=== PATIENT | female | born 1985 | race Caucasian/White ===

== ENCOUNTER 2016-07-28 18:46 | Outpatient (CLI) | payer OTHER ==
[~2016-07-28] VITALS: Ht 154.9 cm; Wt 72.1 kg
[~2016-07-28 18:46] MED LIST: PREN1TAB79 PO
[2016-07-28 19:08] VITALS: Ht 154.9 cm; Wt 72.1 kg
[2016-07-28 19:09] VITALS: BP 104/67; PULSE 92; RESP 18
[2016-07-28] MEDS ORDERED: DOCU-144 PO (19:11)
[2016-07-28] MEDS ORDERED: FERR325C PO (19:11)
--- NOTE | 2016-07-28 20:01 | RADRPT ---
PROCEDURE: US OB biophysical profile. CLINICAL INDICATION: decreased movements, GDM TECHNIQUE: Multiple sonographic images of the pelvis were obtained. The images were reviewed on a PACS workstation. COMPARISON: 03/26/16 FINDINGS: There is a single viable intrauterine gestation. Cardiac activity is present with 128 beats per min [place]. There is a vertex presentation. The placenta is fundal. There is no evidence of placental abruption. There is a normal amount of amniotic fluid with an PAULA = 14.2 cm. Biophysical profile: movement 2/2 tone 2/2. breathing 2/2 PAULA 2/2 Total 02/28 RPTAT: AA . IMPRESSION: Normal biophysical profile. . .Harinder Shaikh MD, MD Date Time Electronically viewed and signed by .Harinder Shaikh MD, MD on 07/28/2016 20:00 .S/
--- NOTE | 2016-07-28 20:15 | PN ---
Date/Time of Note Date/Time of Note DATE: 07/28/16 TIME: 20:11 OB Subjective Subjective Subjective 31 yo P0 @ 38wks 6days, sent for NST/BPP for decreased movement. Now feels baby moving, no VB, no LOF, no ctx h/o GDMA1 this OB Objective Objective Objective Abdomen- gravid, n/t SVE- deferred FHT- Cat I [place]- no ctx sono- BPP 02/28 Abdomen: WNL Membranes: Intact Accelerations: Accelerations Present Decelerations: No Decelerations Varibility: Moderate Contractions on Admission: None OB Assessment/Plan Other Assessment: 31 yo P0 @ [id number], for BPP/NST - now feels baby moving -nml BPP/reactive NST -d/c home - f/u w primary OB next week NANETTE CHIANG MD Jul 28, 2016 20:15
--- NOTE | 2016-07-28 23:18 | TRIAGE ---
OB Triage Datetime Report Generated by CPN: 07/28/2016 23:18 Datetime: 07/28/2016 20:07 Stage of : OB Triage Labor Evaluation Frequency: occasional Monitor Mode: External Duration (sec)2399: 50-100 Quality: Mild Resting Tone [place]: Relaxed Heart Rate FHR Baseline Rate: 130 Monitor Mode: External US Variability: Moderate 6-25 bpm Accelerations: 15X15 Decelerations: None Category: Category I Datetime: 07/28/2016 20:02 Stage of : OB Triage Comments: Maternal pulse captured Datetime: 07/28/2016 19:58 Stage of : OB Triage Comments: Maternal pulse captured, loss of contact with fhts. Datetime: 07/28/2016 19:50 Stage of : OB Triage Datetime: 07/28/2016 19:30 Labor Evaluation Frequency: 1 Monitor Mode: External Duration (sec)2399: 60 Quality: Mild Pattern: Normal: <= 5 Contractions in 10 Minutes Resting Tone [place]: Relaxed Contraction Comments: IRRITABILITY NOTED Heart Rate FHR Baseline Rate: 135 Monitor Mode: External US FHR Baseline Changes: No Baseline Change Variability: Moderate 6-25 bpm Accelerations: 15X15 Decelerations: None Category: Category I Datetime: 07/28/2016 19:01 Assessment Type: Triage Maternal Assessment Level of Consciousness: Fully Conscious DTR's/Clonus: DTRs 2+; No Clonus Headache: Denies Blurred Vision: No Respiratory Effort: Unlabored Breath Sounds, Left: Clear and Equal Breath Sounds, Right: Clear and Equal Nausea/Vomiting: Denies RUQ Epigastric Pain: Denies Lower Extremities Edema: None Degree: None Upper Extremities Edema: None Degree: None Facial Edema: None Fall Risk Assessment History of Falling: (0) No Secondary Diagnosis: (15) Yes (Annotations: A1C 6.2) Ambulatory Aid: (0) Bedrest/Nurse Assist IV Therapy: (0) No Gait: (0) Normal/Bedrest/Immobile Mental Status: (0) Oriented to Own Ability Fall Score: 15 Fall Risk Score Definition: No Risk: No action required Datetime: 07/28/2016 18:58 Time of Arrival: 07/28/2016 18:40 EGA: 38.4 Arrived By: Ambulatory Arrived From: Dr. Conde Chief Complaint: Sent from clinic for NST, BPP, Movement: Present Contractions: Denies/Absent Rupture of Membranes: Denies Vaginal Bleeding: None Vaginal Discharge: Denies Recent Sexual Intercouse: Denies Abdominal Trauma: Not Applicable Patient Complaints: Other Additional Patient Complaints: Pt states Dr Ballesteros wants her to be checked because she is predia betic. Time Provider Notified: 07/28/2016 18:42 Provider Notified: WILDER Initial Plan: VS, EFM, BPP Datetime: 07/28/2016 18:52 Stage of : OB Triage Monitor Mode: External Monitor Mode: External US Datetime: 07/22/2016 14:08 Bedside Blood Glucose: 72 Datetime: 07/22/2016 13:36 Vaginal Exam Dilatation (cms): 0.0 Effacement (%): 0 Station: -4 Exam By: vc Vaginal Bleeding: None Cervix, Consistency: Firm Cervix, Position: Posterior Datetime: 07/22/2016 13:31 Assessment Type: Triage EGA: 37.5 Time Provider Notified: 07/22/2016 13:47 Provider Notified: abusleme Maternal Assessment Level of Consciousness: Fully Conscious Maternal Assessment Level of Consciousness: Fully Conscious DTR's/Clonus: DTRs 2+; No Clonus Headache: Generalized Headache: Denies Blurred Vision: No Respiratory Effort: Unlabored; Regular Rhythm; Equal Expansion Breath Sounds, Left: Clear and Equal Breath Sounds, Right: Clear and Equal Nausea/Vomiting: Hx of Nausea/Vomiting Nausea/Vomiting: Denies RUQ Epigastric Pain: Denies RUQ Epigastric Pain: Denies Lower Extremities Edema: None Upper Extremities Edema: None Facial Edema: None Fall Risk Assessment History of Falling: (0) No Secondary Diagnosis: (0) No Ambulatory Aid: (0) Bedrest/Nurse Assist IV Therapy: (0) No Gait: (0) Normal/Bedrest/Immobile Mental Status: (0) Oriented to Own Ability Fall Score: 0 Fall Risk Score Definition: No Risk: No action required Pain Assessment Pain Scale: 7 Pain Presence: Intermittent Pain Type: Cramping; Pressure Pain Location: Abdomen Datetime: 07/22/2016 13:29 Time of Arrival: 07/22/2016 13:16 Arrived By: Wheelchair Arrived From: Emergency Dept Chief Complaint: dizziness last p.m. and abdominal pain. pt. states she has been seen by dr. adilene acevedo for lga Movement: Present Contractions: Irregular Rupture of Membranes: Denies Vaginal Bleeding: None Vaginal Discharge: Denies Recent Sexual Intercouse: Denies Abdominal Trauma: Not Applicable Patient Complaints: Dizziness Additional Patient Complaints: have laborist eval. Time Provider Notified: 07/22/2016 13:48 Provider Notified: wilder
== END 2016-07-28 20:26 | disposition home or self-care (01) ==
LOC: OBT 18:46 → L-D 18:46 → OBT 20:26
PROVIDERS: ATTEND Obstetrics & Gynecology
DX: O36.8130 Decreased fetal movements, third trimester, not applicable or unspecified (principal); O24.410 Gestational diabetes mellitus in pregnancy, diet controlled; Z3A.38 38 weeks gestation of pregnancy
CPT/HCPCS: 76818; Z7500; G0463

== ENCOUNTER 2016-08-04 18:04 | Outpatient (CLI) | payer OTHER ==
[~2016-08-04] VITALS: Ht 154.9 cm; Wt 69.7 kg
[~2016-08-04 18:04] MED LIST changes: +DOCU-144 PO; +FERR325C PO
[2016-08-04 18:23] VITALS: BP 104/67; PULSE 110; RESP 18; Ht 154.9 cm; Wt 69.7 kg
--- NOTE | 2016-08-04 19:06 | RADRPT ---
PROCEDURE: US OB biophysical profile. CLINICAL INDICATION: evaluation TECHNIQUE: Multiple sonographic images of the pelvis were obtained. The images were reviewed on a PACS workstation. COMPARISON: Obstetrical ultrasound from 07/28/2016 FINDINGS: There is a single viable intrauterine gestation. Cardiac activity is present with 150 beats per min [place]. There is a vertex presentation. The placenta is posterior and fundal. There is no evidence of placental abruption. There is a normal amount of amniotic fluid with an PAULA = 10.6 cm. Biophysical profile: movement 2/2 tone 2/2. breathing 2/2 PAULA 2/2 Total 02/28 RPTAT: AA . IMPRESSION: Normal biophysical profile. Physician Brad Date Time Electronically viewed and signed by Physician Brad on 08/04/2016 19:06 /
--- NOTE | 2016-08-04 19:10 | RADRPT ---
PROCEDURE: US OB. CLINICAL INDICATION: Gestational diabetes. TECHNIQUE: Multiple sonographic images of the pelvis were obtained. Transabdominal imaging only w as performed. The images were reviewed on a PACS workstation. COMPARISON: 07/28/2016. FINDINGS: Single live intrauterine is identified. Cardiac activity is present with 150 beats per mi [place]. There is a vertex presentation. Measurements: BPD = 39 weeks 4 days. HC = 38 weeks 6 days. AC = 39 weeks 1 day. FL = 38 weeks 0 days. Estimated gestational age of approximately 38 weeks 6 days. The estimated date of delivery is 3640 g which is at the 63rd percentile. The EFW = . Limited evaluation of anatomy is without gross abnormality. The placenta is fundal and grade II. There is no evidence for an abruption or placenta previa. IMPRESSION: Single live intrauterine gestation of approximately 38 weeks 6 days. RPTAT: HMVK .Oskar Mathis MD, Date Time Electronically viewed and signed by .Oskar Mathis MD, MD on 08/04/2016 19:10 .K/
--- NOTE | 2016-08-04 21:18 | TRIAGE ---
OB Triage Datetime Report Generated by CPN: 08/04/2016 21:18 Datetime: 08/04/2016 18:28 Bedside Blood Glucose: 129 Datetime: 08/04/2016 18:19 Assessment Type: Triage Maternal Assessment Level of Consciousness: Fully Conscious DTR's/Clonus: DTRs 2+; No Clonus Headache: Denies Blurred Vision: No Respiratory Effort: Unlabored Breath Sounds, Left: Clear and Equal Breath Sounds, Right: Clear and Equal Nausea/Vomiting: Denies RUQ Epigastric Pain: Denies Lower Extremities Edema: None Degree: None Upper Extremities Edema: None Degree: None Facial Edema: None Fall Risk Assessment History of Falling: (0) No Secondary Diagnosis: (15) Yes Ambulatory Aid: (0) Bedrest/Nurse Assist IV Therapy: (0) No Gait: (0) Normal/Bedrest/Immobile Mental Status: (0) Oriented to Own Ability Fall Score: 15 Fall Risk Score Definition: No Risk: No action required Datetime: 07/28/2016 20:26 Time of Arrival: 08/04/2016 18:01 EGA: 39.4 Arrived By: Ambulatory Arrived From: Office Chief Complaint: PT SENT IN FOR NST/BPP FOR GDM Movement: Present Contractions: Denies/Absent Rupture of Membranes: Denies Vaginal Bleeding: None Vaginal Discharge: Denies Recent Sexual Intercouse: Denies Abdominal Trauma: Not Applicable Patient Complaints: None Provider Notified: ABUSLEME Initial Plan: NST/BPP/EFW Datetime: 07/28/2016 19:01 Fall Score: 15 Fall Risk Score Definition: No Risk: No action required Datetime: 07/28/2016 18:58 EGA: 38.4 Datetime: 07/22/2016 13:31 EGA: 37.5 Fall Score: 0 Fall Risk Score Definition: No Risk: No action required
--- NOTE | 2016-08-04 21:32 | PN ---
Date/Time of Note Date/Time of Note DATE: 08/04/16 TIME: 21:17 OB Subjective Subjective Subjective 31 yo P0@ 39.4 wks, sent by her doctor for NST/BPP/EFW no complaints; good FM, no VB, no LOF OB Objective Objective Objective 104/67, 110, 18, 98.3, 97 Abdomen- gravid, n/t SVE- closed per patient's private md FHT- Cat I [place]- no ctx Abdomen: WNL Extremities: Normal Effacement: 0% Heart Rate: 130's Accelerations: Accelerations Present Varibility: Moderate Contractions on Admission: None OB Assessment/Plan Other Assessment: reassuring status not in labor EFW- 3640gm, BPP 8/8, PAULA 10.6 GDMA1 scheduled for IOL tomorrow at 8pm NANETTE CHIANG MD Aug 04, 2016 21:28
== END 2016-08-04 21:10 | disposition home or self-care (01) ==
LOC: OBT 18:04 → L-D 18:06 → OBT 21:10
PROVIDERS: ATTEND Obstetrics & Gynecology
DX: O24.410 Gestational diabetes mellitus in pregnancy, diet controlled (principal); Z3A.39 39 weeks gestation of pregnancy
CPT/HCPCS: 76815; 76818; 82962; Z7500; G0463

== ENCOUNTER 2016-08-05 21:07 | Inpatient (IN) | payer OTHER ==
[~2016-08-05] VITALS: Ht 154.9 cm; Wt 69.1 kg
[2016-08-05 21:33] VITALS: BP 121/77; PULSE 97; RESP 18; Ht 154.9 cm; Wt 69.1 kg
[2016-08-05] MEDS ORDERED: OXYTOCIN 30 UNITS/LR 500 ML IV PRN (22:00)
[2016-08-05] MEDS ORDERED: CARBOPROST 250 MCG INJ IM PRN (22:00)
[2016-08-05] MEDS ORDERED: LIDOCAINE 1% (MPF) 30 ML INJ INJ PRN (22:00)
[2016-08-05] MEDS ORDERED: MISOPROSTOL 200 MCG TAB PR PRN (22:00)
[2016-08-05] MEDS ORDERED: METHYLERGONOVINE 0.2 MG INJ IM PRN (22:00)
[2016-08-05] MEDS ORDERED: IBUPROFEN 600 MG TAB PO PRN (22:00)
[2016-08-05] MEDS ORDERED: LACTATED RINGER'S 1,000 ML IV PRN (22:00)
[2016-08-05] MEDS ORDERED: BUTORPHANOL 2 MG INJ IV PRN (22:00)
[2016-08-05] MEDS ORDERED: DINOPROSTONE 10 MG VAG SUPP VAG ONE (22:00)
[2016-08-05] MEDS ORDERED: OXYTOCIN 30 UNITS/LR 500 ML IV SCH ×3 (22:00)
[2016-08-05] MEDS: LACTATED RINGER'S 1,000 ML IV SCH (22:08)
[2016-08-05 22:37] LABS: INR 0.96; PROTIME 12.8 Sec (12.2-14.2)
[2016-08-05 22:38] LABS: PARTIAL THROMBOPLASTIN TIME 29.7 Sec (25.0-35.0)
[2016-08-05 22:44] LABS: BASOPHIL # 0.1 10^3/ul (0.0-0.1); BASOPHILS % 0.8 % (0.0-2.0); EOSINOPHILS # 0.3 10^3/ul (0.0-0.5); EOSINOPHILS % 3.6 % (0.0-7.0); HEMATOCRIT 26.2 % (37.0-47.0); HEMOGLOBIN 8.5 g/dl (12.0-16.0); LYMPHOCYTES # 1.8 10^3/ul (0.8-2.9); LYMPHOCYTES % 21.1 % (15.0-51.0); MEAN CORPUSCULAR HEMOGLOBIN 26.6 pg (29.0-33.0); MEAN CORPUSCULAR HGB CONC 32.4 g/dl (32.0-37.0); MEAN PLATELET VOLUME 9.5 fl (7.4-10.4); MONOCYTE # 0.4 10^3/ul (0.3-0.9); MONOCYTES % 4.7 % (0.0-11.0); NEUTROPHIL # 5.9 10^3/ul (1.6-7.5); NEUTROPHILS % 69.8 % (39.0-77.0); PLATELET COUNT 264 10^3/UL (140-440); RED BLOOD COUNT 3.19 10^6/ul (4.20-5.40); RED CELL DISTRIBUTION WIDTH 19.7 % (11.5-14.5); UNCORRECTED WBC 8.4 10^3/ul (4.8-10.8); WHITE BLOOD COUNT 8.4 10^3/ul (4.8-10.8)
[2016-08-05 22:46] LABS: CONDITION 1; LH ANALYZER COMMENTS 1
[2016-08-06] MEDS: LACTATED RINGER'S 1,000 ML IV SCH ×3 (05:07→22:00)
[2016-08-06] MEDS: DEXTROSE 5%-LR 1,000 ML IV SCH ×2 (09:19→17:19)
[2016-08-06] MEDS ORDERED: LACTATED RINGER'S 1,000 ML IV SCH (09:19)
[2016-08-06] MEDS ORDERED: DINOPROSTONE 10 MG VAG SUPP VAG ONE ×2 (23:30)
[2016-08-07] MEDS: DEXTROSE 5%-LR 1,000 ML IV SCH (01:19)
[2016-08-07] MEDS: LACTATED RINGER'S 1,000 ML IV SCH ×3 (05:33→21:27)
[2016-08-07] MEDS ORDERED: CEFAZOLIN 2 GM/50 ML (PMX) 50 ML IVPB ONE (11:00)
[2016-08-07] MEDS ORDERED: NA PHOSPHATE/BIPHOS 133 ML ENEMA PR PRN (13:30)
[2016-08-07] MEDS ORDERED: LANOLIN 7 GM TUBE TOP PRN (13:30)
[2016-08-07] MEDS ORDERED: METHYLERGONOVINE 0.2 MG TAB PO PRN (13:30)
[2016-08-07] MEDS: CEFAZOLIN 2 GM/50 ML (PMX) 50 ML IV SCH (13:30)
[2016-08-07] MEDS ORDERED: METHYLERGONOVINE 0.2 MG INJ IM PRN (13:30)
[2016-08-07] MEDS ORDERED: MISOPROSTOL 200 MCG TAB PR PRN (13:30)
[2016-08-07] MEDS ORDERED: CARBOPROST 250 MCG INJ IM PRN (13:30)
[2016-08-07] MEDS ORDERED: OXYTOCIN 30 UNITS/LR 500 ML IV PRN (13:30)
[2016-08-07] MEDS ORDERED: EPHEDrine SULFATE 50 MG/5 ML SYG ONE (13:45)
[2016-08-07] MEDS ORDERED: OXYTOCIN 30 UNITS/LR 500 ML IV ONE (13:45)
[2016-08-07] MEDS ORDERED: OXYTOCIN 10 UNIT INJ ONE (13:46)
[2016-08-07] MEDS ORDERED: ONDANSETRON 4 MG INJ ONE (13:46)
[2016-08-07] MEDS ORDERED: METOCLOPRAMIDE 10 MG INJ ONE (13:46)
[2016-08-07] MEDS ORDERED: morphine SULFATE/PF (10 MG/10 ML) INJ ONE (13:46)
--- NOTE | 2016-08-07 14:03 | HP ---
Date/Time of Note Date/Time of Note DATE: 08/07/16 TIME: 13:49 OB - History Hx of Present Estimated Due Date: Aug 09, 2016 : 3 Para: 0 Therapeutic : 2 Care: Limited Care Obstetrical Complications: Gestational Diabetes Medical Complications: None Past Family/Social History * Past Medical, Surgical, Family and Obstetric Histories reviewed from chart. GBS Status: Negative OB Admission Exam Vital Signs Vital Signs Vital Signs Date Time Temp Pulse Resp B/P Pulse Ox O2 Delivery O2 Flow Rate FiO2 08/05/16 21:33 98.3 97 18 121/77 98 Room Air Physical Exam HEENT: WNL Heart: Rhythm Normal Lungs: Clear, Equal Abdomen: WNL Extremities: Normal Reflexes: Normal Cervical Dilatation: None Effacement: 0% Station: [place] Membranes: Intact Heart Rate: 130's Accelerations: Accelerations Present Varibility: Marked Contractions on Admission: None Last 72 hourBlood Glucose Bedside Glucose - 72 Hours Test 08/06/16 09:29 08/06/16 13:38 08/06/16 19:28 08/07/16 00:17 Bedside Glucose 77mg/dL (70-220) 95mg/dL (70-220) 132mg/dL (70-220) 126mg/dL (70-220) Test 08/07/16 04:01 08/07/16 09:18 08/07/16 13:11 Bedside Glucose 88mg/dL (70-220) 88mg/dL (70-220) 72mg/dL (70-220) Last 72 hours Lab Results CBC & BMP 08/05/16 21:50 OB Assessment/Plan Reason for admission: induction of labor Other Assessment: NO PROGRESS OF LABOR NOR DESCENT OF THE PRESENTATION Plan: Section AYDE HDZ MD Aug 07, 2016 14:00
[2016-08-07] MEDS ORDERED: morphine 2 MG INJ IV PRN ×2 (15:30)
[2016-08-07] MEDS ORDERED: HYDROmorphONE 1 MG/ML SYG IV PRN (15:30)
[2016-08-07] MEDS ORDERED: DIPHENHYDRAMINE 50 MG INJ IV PRN (15:30)
[2016-08-07] MEDS ORDERED: ONDANSETRON 4 MG INJ IV PRN (15:30)
[2016-08-07] MEDS ORDERED: NALOXONE (0.4 MG/ML) INJ IV PRN (15:30)
[2016-08-07] MEDS ORDERED: morphine SULFATE/PF (10 MG/10 ML) INJ SPINAL ONE (15:30)
[2016-08-07] MEDS ORDERED: EPHEDrine SULFATE 50 MG/5 ML SYG IV PRN (15:30)
--- NOTE | 2016-08-07 15:38 | OPPN ---
Date/Time of Note Date/Time of Note DATE: 08/07/16 TIME: 15:31 Operative/Procedure Note Pre-Operative Diagnosis TERM GDM DIET CONTROL ANEMIA LARGE FETUS Post-Operative Diagnosis SAME Procedure PRIMARY LOW SEGMENT TRANSVERSE C/S Surgeon: AYDE HDZ MD Shell Press Operator: NOLVIA BURTON M.D. Anesthesiologist: CA WADE MD Implants/Grafts: Not applicable Estimated blood loss: other Specimens PLACENTA Complications: None Anesthesia type: spinal AYDE HDZ MD Aug 07, 2016 15:38
--- NOTE | 2016-08-07 15:44 | DELSUM ---
Delivery Summary A-C Datetime Report Generated by CPN: 08/07/2016 15:43 DELIVERY PERSONNEL Front End Assistant: Ghukasyan, Jordyn MATERNAL INFORMATION Delivery Anesthesia: Spinal Medications in Delivery: 30 UNITS OF PIT IN 500 CC LR Estimated Blood Loss (ml): 700 Placenta Cultured: No Maternal Complications: Other Other Maternal Complications: Gestational diabetes LABOR SUMMARY EDC: 08/07/2016 00:00 No. Babies in Womb: 1 Attempted: No Labor Anesthesia: None LABOR INFORMATION Reason for Induction: Maternal Diabetes Cervical Ripening Agents: Cervidil (Annotations: #2 placed by MAYCO SAUERBUYER GRAIN) Cervical Ripening Agents: CERVIDIL REMOVED NOW Cervical Ripening Agents: Cervidil Oxytocin: N/A Group B Beta Strep: Negative Antibiotics # of Doses: 1 Antibiotics Time of Last Dose: 1334 Steroids Given: None Reason Steroids Not Administered: Not Applicable MEMBRANES Membranes Rupture Method: Artificial Rupture of Membranes: 08/07/2016 14:25 Length of Rupture (hr): 0.02 Amniotic Fluid Color: Clear Amniotic Fluid Amount: Small Amniotic Fluid Odor: Normal STAGES OF LABOR Stage 3 hr: 0 Stage 3 min: 1 CSECTION DELIVERY Primary Indication: Failed Induction Secondary Indication: Other Other Secondary Indication: ELECTIVE CSection Urgency: Elective CSection Incidence: Primary Labor: No Labor Elective: Elective CSection Incision: Lower Uterine Transverse BABY A INFORMATION Delivery Date/Time: 08/07/2016 14:26 Method of Delivery: Born in Route : No : N/A Forceps: N/A Vacuum Extraction: Successful Shoulder Dystocia : N/A ASSISTED DELIVERY BABY A Indication for Assisted Delivery: SEE MD"S NOTES SHOULDER DYSTOCIA BABY A Delivery Date/Time: 08/07/2016 14:26 PRESENTATION/POSITION BABY A Presentation: Cephalic Cephalic Presentation: Vertex Vertex Position: Left Occipital Anterior Breech Presentation: N/A PLACENTA INFORMATION BABY A Placenta Delivery Time : 08/07/2016 14:27 Placenta Method of Delivery: Manual Removal Placenta Status: Delivered SCORES BABY A Heart Rate 1 min: >100 bpm Resp Effort 1 min: Good Cry Reflex Irritability 1 min: Cough/Sneeze/Pulls Away Muscle Tone 1 min: Active Motion Color 1 min: Body Nunez, Extremit Blue Resuscitation Effort 1 min: Tactile Stimulation SCORE 1 MIN: 9 Heart Rate 5 min: >100 bpm Resp Effort 5 min: Good Cry Reflex Irritability 5 min: Cough/Sneeze/Pulls Away Muscle Tone 5 min: Active Motion Color 5 min: Body Nunez, Extremit Blue Resuscitation Effort 5 min: Tactile Stimulation SCORE 5 MIN: 9 INFANT INFORMATION BABY A Gestational Age at Delivery: 40.0 Gestational Status: Full Term- 39- 40.6 Weeks Infant Outcome : Liveborn Condition : Stable Infant Sex: Male IDENTIFICATION/MEDS BABY A ID Band Number: [id number] ID Band Location: Right Leg; Left Arm Sensor Applied: Yes Sensor Number: [id number] Sensor Location : Cord Clamp Vitamin K Given : Not Given Erythromycin Given: Not Given WEIGHT/LENGTH BABY A Birthweight (gm): 3750 Infant Weight (lb): 8 Weight (oz): 4 Length (in): 21.00 Infant Length (cm): 53.34 CORD INFORMATION BABY A Nuchal Cord : Around Neck x1, Loose Cord Blood Taken: Yes Infant Suction: Mouth; Nose ASSESSMENT BABY A Infant Complications: None Physical Findings at Delivery: Within Normal Limits Infant Respirations: Appears Normal Coffee Shop Manager/ALS Called : No Infant Care By: ULYSSES WALKER RN Transferred To: Remains with Mother
[2016-08-07] MEDS: OXYTOCIN 30 UNITS/LR 500 ML IV SCH ×2 (16:00→19:47)
--- NOTE | 2016-08-07 16:23 | PREOPHP ---
DATE OF ADMISSION: 08/05/2016 HISTORY OF PRESENT ILLNESS: This is a 31-year-old female 3, para 0, 2 with an EDC of 08/09/2016. This patient was admitted for induction on 08/05/2016 due to term , and ind uction of labor for gestational diabetes, late care, and estimation of weight of 710 possible with no engagement of the head. The patient was given the option of going straight up to a due to her height that is only 5'1', and the baby was measuring 710 with not engagement, and she had requested an induction to see if the baby would come down. The induction has been done f or over 24 hours. The patient has mild contractions. The baby has been all the way up in the pelvis without getting engaged. With the possibility of CPD, the patient has been advised for a primary c esarean section for possible CPD, term , gestational diabetes controlled with diet. PAST MEDICAL HISTORY: Unremarkable. She has been healthy. She had 2 abortions. ALLERGIES: She is not allergic to any medications. MEDICATIONS: No. SURGICAL HISTORY: None. FAMILY HISTORY: No major medical antecedents. PHYSICAL EXAMINATION: VITAL SIGNS: She is 5'1". Blood pressure is 110/80, respirations 16, pulse is 80, temperature 98.6 . HEAD AND NECK: Normal. CHEST: Clear. HEART: Normal sinus rhythm. LUNGS: Clear. BREASTS: Soft, nontender. No masses. ABDOMEN: Soft. Uterus at term, with normal heart tones. Patient barely cindy. VAGINAL: With a closed, long cervix, with a posterior long cervix, -3 station, membranes intact. EXTREMITIES: Were normal, with normal pulses, normal reflexes, and no edema. DIAGNOSES: 1. Term . 2. Gestational diabetes, diet control. 3. Failed induction. 4. Possible disproportion. PLAN: She is undergoing a primary section. She has been advised of the possible risks and possible complications of the procedure with her alternatives and options. Written information was provided. She had no more questions and agreed to go ahead with the procedure with full understand ing and no more questions. Dictated By: AYDE SEAMAN/ROYCE Conf#: [id number] DID#: [id number]
[2016-08-07] MEDS: KETOROLAC 30 MG INJ IV PRN (17:42)
--- NOTE | 2016-08-07 19:33 | OPR ---
DATE OF OPERATION: 08/07/2016 OPERATION PERFORMED: Primary low segment transverse section. PREOPERATIVE DIAGNOSES: 1. Term . 2. Gestational diabetes mellitus, diet controlled. 3. No progress of labor, failed induction SURGEON: Ayde Ballesteros MD STRAIGHTENING PRESS OPERATOR HELPER: Car Nichole MD ANESTHESIOLOGIST: Dr. Patiño. PROCEDURE: The patient was given ____ spinal anesthesia, placed in the supine position. The abdome n was prepped and draped and a Cardona catheter was placed in the bladder. A transverse incision was made of about 10 cm in length suprapubically over the midline, 2 cm up the pubic bone. The abdomen was opened in layers without difficulties. Abdominal cavity was reached. The Amol retractor was placed in and the amniotic fluid was clear. The baby's cord was around the neck loose, we passed th rough and the baby was delivered with the help of a vacuum. The cord was clamped and cut. The baby was large, 8.4 pound baby boy, 9. The cord was clamped and cut. The baby was handed over to the county treasurer team. The uterus was cleaned out and closed in layers using #1 Monocryl continuo us suture imbedding the first line of suture and hemostasis was good. The tubes and ovaries were no rmal. The piece of Interceed was placed in the area and the abdominal cavity was closed with a 2-0 Vicryl suture for peritoneum, #0 PDS looped suture for the fascia, #2-0 Vicryl for the subcutaneous tissue, and 3-0 Monocryl subcuticular to the skin. Steri-Strips and Dermabond was used. The patien t tolerated the procedure well and left the OR awake and stable. Sponge counts and instrument count s were correct. Intravenous antibiotics were given for prophylaxis. Blood loss was approximately 7 00 mL. The urine was clear at the end of the procedure. The patient left the OR awake and stable. Dictated By: AYDE SEAMAN/NTS Conf#: [id number] DID#: [id number]
[2016-08-07] MEDS: HYDROmorphONE 1 MG/ML SYG IV PRN ×2 (19:55→22:22)
[2016-08-07] MEDS: SENNA/DOCUSATE NA (8.6MG/50MG) TAB PO SCH (21:00)
[2016-08-07 22:40] VITALS: BP 118/71; PULSE 87; RESP 16
[2016-08-08] MEDS: CEFAZOLIN 2 GM/50 ML (PMX) 50 ML IV SCH ×2 (00:23→08:10)
[2016-08-08] MEDS: LACTATED RINGER'S 1,000 ML IV SCH ×4 (00:24→21:27)
[2016-08-08 00:30] VITALS: BP 102/58; PULSE 105; RESP 16
[2016-08-08] MEDS: KETOROLAC 30 MG INJ IV PRN ×2 (03:17→09:39)
[2016-08-08 04:15] VITALS: BP 103/64; PULSE 99; RESP 16
[2016-08-08 07:49] LABS: BASOPHIL # 0.1 10^3/ul (0.0-0.1); BASOPHILS % 0.5 % (0.0-2.0); EOSINOPHILS # 0.1 10^3/ul (0.0-0.5); EOSINOPHILS % 0.9 % (0.0-7.0); HEMATOCRIT 22.8 % (37.0-47.0); HEMOGLOBIN 7.4 g/dl (12.0-16.0); LYMPHOCYTES # 1.7 10^3/ul (0.8-2.9); LYMPHOCYTES % 16.2 % (15.0-51.0); MEAN CORPUSCULAR HEMOGLOBIN 26.6 pg (29.0-33.0); MEAN CORPUSCULAR HGB CONC 32.4 g/dl (32.0-37.0); MEAN CORPUSCULAR VOLUME 82.1 fl (82.0-101.0); MEAN PLATELET VOLUME 8.7 fl (7.4-10.4); MONOCYTE # 0.5 10^3/ul (0.3-0.9); MONOCYTES % 4.3 % (0.0-11.0); NEUTROPHIL # 8.3 10^3/ul (1.6-7.5); NEUTROPHILS % 78.1 % (39.0-77.0); PLATELET COUNT 230 10^3/UL (140-440); RED BLOOD COUNT 2.77 10^6/ul (4.20-5.40); RED CELL DISTRIBUTION WIDTH 20.8 % (11.5-14.5); UNCORRECTED WBC 10.7 10^3/ul (4.8-10.8); WHITE BLOOD COUNT 10.7 10^3/ul (4.8-10.8)
[2016-08-08 08:10] VITALS: BP 104/62; PULSE 87; RESP 16
[2016-08-08] MEDS: SENNA/DOCUSATE NA (8.6MG/50MG) TAB PO SCH ×2 (08:10→20:59)
[2016-08-08 08:18] LABS: CONDITION 1; LH ANALYZER COMMENTS 1
--- NOTE | 2016-08-08 10:33 | PN ---
Date/Time of Note Date/Time of Note DATE: 08/08/16 TIME: 10:27 Assessment/Plan Lines/Catheters IV Catheter Type (from Nrs): Peripheral IV Assessment/Plan Assessment/Plan we will wait on blood transfusion unless she has symptoms,or HB is dropping or vitals are unstable. we will give IV iron Subjective 24 Hr Interval Summary day 1 post c/s doing well, afebrile, stable, happy. very anemic but patient is chronic anemic & has no symptoms of chest pain,SOB fatigue or weakness. normal vaginal bleeding. Constitutional: BM, ambulates, flatus, improved, no complaints, urine output Feeding: advancing diet Pain Control: well controlled Detailed Summary Eyes: no complaints ENT: no complaints Respiratory: no complaints Cardiovascular: no complaints Gastrointestinal: no complaints Genitourinary: no complaints Musculoskeletal: no complaints Skin: no complaints Neurologic: no complaints Endocrine: no complaints Lymphatic: no complaints Psychological: nl mood/affect, no complaints Immunologic: no complaints Exam/Review of Systems Vital Signs Vitals Vital Signs Date Time Temp Pulse Resp B/P Pulse Ox O2 Delivery O2 Flow Rate FiO2 08/08/16 08:10 98.2 87 16 104/62 Room Air 08/05/16 21:33 98 Intake and Output 08/07/16 08/07/16 08/08/16 15:00 23:00 07:00 Intake Total 800 ml 500 ml 375 ml Output Total 700 ml 700 ml 750 ml Balance 100 ml -200 ml -375 ml Exam Constitutional: alert, oriented, well developed Psych: nl mood/affect, no complaints Head: atraumatic, normocephalic Eyes: EOMI, nl conjunctiva, nl lids, nl sclera ENMT: mucosa pink and moist, nl external ears & nose, nl lips & teeth, nl nasal mucosa & septum Neck: non-tender, supple Respiratory: clear to auscultation, normal air movement Cardiovascular: nl pulses, regular rate and rhythm Gastrointestinal: nl liver, spleen, non-tender, soft Musculoskeletal: nl extremities to inspection, nl gait and stance Extremities: normal pulses Neurological: MOTOR VEHICLE REPRESENTATIVE II-XII intact, nl mental status, nl speech, nl strength Skin: nl turgor, rash or lesions Lymph: nl lymph nodes Results Result Diagram: 08/08/16 0630 AYDE HDZ MD Aug 08, 2016 10:33
[2016-08-08] MEDS: SOD FERRIC GLUC COMPLX 125 MG in SOD CHLORIDE 0.9% 100 ML IVPB SCH (10:36)
[2016-08-08] MEDS ORDERED: BISACODYL (EC) 5 MG TAB PO ONE (11:00)
[2016-08-08 12:00] VITALS: BP 104/66; PULSE 91; RESP 16
[2016-08-08] MEDS ORDERED: CEFAZOLIN 2 GM/50 ML (PMX) 50 ML IVPB SCH (14:00)
[2016-08-08] MEDS: IBUPROFEN 800 MG TAB PO SCH ×2 (14:35→21:42)
[2016-08-08] MEDS: ACETAMINOPHEN/CODEINE #3 TAB PO PRN ×3 (16:06→22:55)
[2016-08-08 16:30] VITALS: BP 105/71; PULSE 101; RESP 16
[2016-08-08 19:30] VITALS: BP 105/68; PULSE 83; RESP 19
[2016-08-09] VITALS: BP 112/63; PULSE 82; RESP 19
[2016-08-09] MEDS: ACETAMINOPHEN/CODEINE #3 TAB PO PRN ×3 (02:52→22:07)
[2016-08-09 03:54] VITALS: BP 110/68; PULSE 79; RESP 20
[2016-08-09] MEDS: LACTATED RINGER'S 1,000 ML IV SCH (05:27)
[2016-08-09] MEDS: IBUPROFEN 800 MG TAB PO SCH ×3 (05:45→21:25)
[2016-08-09 08:00] VITALS: BP 96/63; PULSE 91; RESP 18
[2016-08-09 08:19] LABS: BASOPHILS % 0.1 % (0.0-2.0); EOSINOPHILS # 0.3 10^3/ul (0.0-0.5); EOSINOPHILS % 2.4 % (0.0-7.0); HEMATOCRIT 22.7 % (37.0-47.0); HEMOGLOBIN 7.4 g/dl (12.0-16.0); LYMPHOCYTES # 2.1 10^3/ul (0.8-2.9); LYMPHOCYTES % 17.7 % (15.0-51.0); MEAN CORPUSCULAR HEMOGLOBIN 26.9 pg (29.0-33.0); MEAN CORPUSCULAR HGB CONC 32.5 g/dl (32.0-37.0); MEAN CORPUSCULAR VOLUME 82.8 fl (82.0-101.0); MEAN PLATELET VOLUME 8.1 fl (7.4-10.4); MONOCYTE # 0.4 10^3/ul (0.3-0.9); MONOCYTES % 3.3 % (0.0-11.0); NEUTROPHIL # 9.1 10^3/ul (1.6-7.5); NEUTROPHILS % 76.5 % (39.0-77.0); PLATELET COUNT 286 10^3/UL (140-440); RED BLOOD COUNT 2.74 10^6/ul (4.20-5.40); RED CELL DISTRIBUTION WIDTH 22.3 % (11.5-14.5); UNCORRECTED WBC 11.9 10^3/ul (4.8-10.8); WHITE BLOOD COUNT 11.9 10^3/ul (4.8-10.8)
[2016-08-09 08:23] LABS: CONDITION 1; LH ANALYZER COMMENTS 1
[2016-08-09] MEDS ORDERED: INFLUENZA VIRUS VACCINE 0.5 ML (DISPENSING) IM* ONE (09:00)
[2016-08-09] MEDS: SOD FERRIC GLUC COMPLX 125 MG in SOD CHLORIDE 0.9% 100 ML IVPB SCH (10:00)
--- NOTE | 2016-08-09 10:40 | PN ---
Date/Time of Note Date/Time of Note DATE: 08/09/16 TIME: 10:39 Assessment/Plan Lines/Catheters IV Catheter Type (from Nrs): Saline Lock Subjective 24 Hr Interval Summary afebrile with some chills at times burning in urination very anemic but asymptomatic incision healing good breast feeding H-H stable Constitutional: BM, ambulates, flatus, improved, no complaints, urine output Feeding: advancing diet Pain Control: well controlled Detailed Summary Eyes: no complaints ENT: no complaints Respiratory: no complaints Cardiovascular: no complaints Gastrointestinal: no complaints Genitourinary: no complaints Musculoskeletal: no complaints Skin: no complaints Neurologic: no complaints Endocrine: no complaints Lymphatic: no complaints Psychological: nl mood/affect, no complaints Immunologic: no complaints Exam/Review of Systems Vital Signs Vitals Vital Signs Date Time Temp Pulse Resp B/P Pulse Ox O2 Delivery O2 Flow Rate FiO2 08/09/16 03:54 98.5 79 20 110/68 Room Air 08/05/16 21:33 98 Intake and Output 08/08/16 08/08/16 08/09/16 14:59 22:59 06:59 Intake Total 2390 ml 1030 ml Output Total 1600 ml 1100 ml Balance 790 ml -70 ml Exam Constitutional: alert, oriented, well developed Psych: nl mood/affect, no complaints Head: atraumatic, normocephalic Eyes: EOMI, nl conjunctiva, nl lids, nl sclera ENMT: mucosa pink and moist, nl external ears & nose, nl lips & teeth, nl nasal mucosa & septum Neck: non-tender, supple Respiratory: clear to auscultation, normal air movement Cardiovascular: nl pulses, regular rate and rhythm Gastrointestinal: nl liver, spleen, non-tender, soft Musculoskeletal: nl extremities to inspection, nl gait and stance Extremities: normal pulses Neurological: MOVIE THEATER MANAGER II-XII intact, nl mental status, nl speech, nl strength Skin: nl turgor, rash or lesions Lymph: nl lymph nodes Results Result Diagram: 08/09/16 0735 AYDE HDZ MD Aug 09, 2016 10:40
[2016-08-09] MEDS: SENNA/DOCUSATE NA (8.6MG/50MG) TAB PO SCH ×2 (12:08→21:25)
[2016-08-09] MEDS: CEPHALEXIN 500 MG CAP PO SCH ×2 (12:08→17:52)
[2016-08-09 16:00] VITALS: BP 107/73; PULSE 98; RESP 18
[2016-08-09 20:00] VITALS: BP 102/64; PULSE 101
[2016-08-10] MEDS: CEPHALEXIN 500 MG CAP PO SCH ×4 (00:35→18:11)
[2016-08-10] MEDS: IBUPROFEN 800 MG TAB PO SCH ×3 (05:43→22:58)
[2016-08-10 06:55] VITALS: BP 102/58; PULSE 94; RESP 20
[2016-08-10 08:15] VITALS: BP 107/63; PULSE 86; RESP 14
[2016-08-10] MEDS: SENNA/DOCUSATE NA (8.6MG/50MG) TAB PO SCH (09:21)
[2016-08-10] MEDS: ACETAMINOPHEN/CODEINE #3 TAB PO PRN ×2 (11:17→20:12)
[2016-08-10 16:55] VITALS: BP 103/58; PULSE 104; RESP 14
[2016-08-10] MEDS ORDERED: CEPHALEXIN 500 MG CAP PO SCH (18:00)
--- NOTE | 2016-08-10 18:32 | PN ---
Date/Time of Note Date/Time of Note DATE: 08/10/16 TIME: 18:25 OB Subjective Subjective Subjective Vaginal bleeding decreased . Patient is breast-feeding. Denies any shortness of breath or chest pain. Denies any dizziness or lightheadedness. OB Objective Objective Objective GA: A&O, NAD, pale Lungs: CTA bilaterally CV: RRR Abdomen: Soft, appropriate tenderness over the incision. no evidence of drainage or suture disruption, Extremities: No calf tenderness, no click, no edema. Bilateral Nipple inversion noted. Hematology - 72 Hrs Test 08/08/16 06:30 08/09/16 07:35 Basophils # 0.110^3/ul (0.0-0.1) 0.010^3/ul (0.0-0.1) Basophils % 0.5% (0.0-2.0) 0.1% (0.0-2.0) Blood Morphology Comment Eosinophils # 0.110^3/ul (0.0-0.5) 0.310^3/ul (0.0-0.5) Eosinophils % 0.9% (0.0-7.0) 2.4% (0.0-7.0) Hematocrit 22.8% (37.0-47.0) L 22.7% (37.0-47.0) L Hemoglobin 7.4g/dl (12.0-16.0) L 7.4g/dl (12.0-16.0) L Lymphocytes # 1.710^3/ul (0.8-2.9) 2.110^3/ul (0.8-2.9) Lymphocytes % 16.2% (15.0-51.0) 17.7% (15.0-51.0) Mean Corpuscular Hemoglobin 26.6pg (29.0-33.0) L 26.9pg (29.0-33.0) L Mean Corpuscular Hemoglobin Concent 32.4g/dl (32.0-37.0) 32.5g/dl (32.0-37.0) Mean Corpuscular Volume 82.1fl (82.0-101.0) 82.8fl (82.0-101.0) Mean Platelet Volume 8.7fl (7.4-10.4) 8.1fl (7.4-10.4) Monocytes # 0.510^3/ul (0.3-0.9) 0.410^3/ul (0.3-0.9) Monocytes % 4.3% (0.0-11.0) 3.3% (0.0-11.0) Neutrophils # 8.310^3/ul (1.6-7.5) H 9.110^3/ul (1.6-7.5) H Neutrophils % 78.1% (39.0-77.0) H 76.5% (39.0-77.0) Nucleated Red Blood Cells # 0.010^3/ul (0.0-0.0) 0.010^3/ul (0.0-0.0) Nucleated Red Blood Cells % 0.0/100WBC (0.0-0.0) 0.0/100WBC (0.0-0.0) Platelet Count 38174^3/UL (140-440) 15653^3/UL (140-440) # Red Blood Count 2.7710^6/ul (4.20-5.40) L 2.7410^6/ul (4.20-5.40) L Red Cell Distribution Width 20.8% (11.5-14.5) H 22.3% (11.5-14.5) H White Blood Count 10.710^3/ul (4.8-10.8) # 11.910^3/ul (4.8-10.8) H Chemistry Test 08/09/16 08:32 Bedside Glucose 96mg/dL (70-220) OB Assessment/Plan Other Assessment: POD #3 S/p repeat section Postop anemia, asymptomatic UTI currently on Keflex, Nipple inversion, patient has problem with breast-feeding, will see consult Desires to stay today Anticipate DC home tomorrow Iron BID and INDERJTI Marcano MD Aug 10, 2016 18:32
[2016-08-10 20:12] VITALS: BP 116/78; PULSE 97; RESP 19
[2016-08-10] MEDS: SENNA TAB PO SCH (20:12)
[2016-08-10] MEDS: FERROUS GLUCONATE (EC) 325 MG TAB PO SCH (20:12)
[2016-08-11] MEDS: CEPHALEXIN 500 MG CAP PO SCH ×3 (00:04→12:21)
[2016-08-11 04:15] VITALS: BP 105/63; PULSE 98; RESP 19
[2016-08-11] MEDS: ACETAMINOPHEN/CODEINE #3 TAB PO PRN ×2 (04:15→08:32)
[2016-08-11] MEDS: IBUPROFEN 800 MG TAB PO SCH ×2 (05:46→13:17)
[2016-08-11 08:00] VITALS: BP 100/63; PULSE 94; RESP 19
[2016-08-11] MEDS: SENNA TAB PO SCH (08:31)
[2016-08-11] MEDS: FERROUS GLUCONATE (EC) 325 MG TAB PO SCH (08:31)
--- NOTE | 2016-08-11 10:39 | PD.PPDC ---
[employer]PERATOR Discharge Instruction Condition Patient Condition: Good Diet Diet: Resume Regular Diet Activity/Restrictions Activity: Normal Activity May Shower Restrictions: No Exercising No Lifting No Driving No Sexual Activity Nothing in the Vagina No [place] No Tampons, douche Wound/Drain Care Instructions Wound/Drain Care Instructions: Wash with soap and water Keep clean and dry Follow-up Follow-up with Physician: 2 Return to clinic for [employer] Instructions: Fever greater than 101 Chills Worsening abdominal pain Excessive Vaginal Bleeding More than 2 pads per hour Unable to tolerate diet OB Instructions: Breast Tenderness Depression Blurried Vision Headache Surgical Instructions: Incisional Drainage Incisional Redness AYDE HDZ MD Aug 11, 2016 10:39
--- NOTE | 2016-08-12 05:04 | DS ---
DATE OF ADMISSION: 08/05/2016 DATE OF DISCHARGE: 08/11/2016 HISTORY: This is a 31-year-old female 3, para 0, abortions 2 with an EDC of 08/09/2016. Th is patient was admitted for induction of labor due to term and induction of labor for gest ational diabetes, late care and estimation of weight of ____ounces possible with non-engage ment of the head. The patient was given the option of going straight up to a due to her h eight and the baby was measuring ____, but she requested an induction of labor. Induction of labor was done for over 24 hours with no progress of her labor due to a non-engagement of the baby's head and she underwent section. She had no complications. She was very anemi c to start with and her laboratory testing showed a hemoglobin of 8.5 on the 13th and hematocrit of 26.2. The going home hemoglobin was 7.4 and hematocrit of 22.7. The patient has not been bleeding much and 1 gram of drop of hemoglobin only from the previous levels. The patient has no symptoms be cause she is chronically anemic. The patient was given IV iron infusion and she was given instructi ons of continuing her iron and vitamins at home. She developed a bladder infection. She is going home on Keflex 500 mg every 6 hours for a week. S he is voiding well. She is already having a bowel movement. The incision is looking very good and clean and dry. She is being seen in my office in a week or earlier if she had any problems. She was stable in good condition, , ambulatory and in good spirits to go home. The patient is leaving the hospital stable and in good condition. FINAL DIAGNOSES 1. Term . 2. Gestational diabetes, diet controlled. 3. Cephalopelvic disproportion. Dictated By: AYDE SEAMAN/ROYCE Conf#: [id number] DID#: [id number]
== END 2016-08-11 16:30 | disposition home or self-care (01) | DRG 766 ==
LOC: L-D 21:07 → EDSTATUS 08-07 14:49 → L-D 08-07 15:23 → PP1 08-07 22:35
PROVIDERS: ADMIT Obstetrics & Gynecology; ATTEND Obstetrics & Gynecology
PROC: 10D00Z1 Extraction of Products of Conception, Low, Open Approach (ICD-10-PCS; principal; 2016-08-07 14:30)
PROC: 3E00X4Z Introduction of Serum, Toxoid and Vaccine into Skin and Mucous Membranes, External Approach (ICD-10-PCS; 2016-08-09)
DX: O24.429 Gestational diabetes mellitus in childbirth, unspecified control (principal); O61.9 Failed induction of labor, unspecified; O33.9 Maternal care for disproportion, unspecified; Z23 Encounter for immunization; Z3A.40 40 weeks gestation of pregnancy; Z37.0 Single live birth
CPT/HCPCS: 82962; 85025; 85610; 85730; 86592; 86850; 86900; 86901; 86920; 87086; 87340; 90686; 99464; J0690; J1170; J1885; J2210; J2274; J2405; J2590; J2765; J2916; J7120; J7121

== ENCOUNTER 2017-08-30 19:12 | Emergency (ER) | END 2017-08-31 01:34 | disposition home or self-care (01) ==